=== PATIENT | male | born 1955 | race Caucasian/White ===

== ENCOUNTER 2018-11-17 07:07 | Day surgery (SDC) | payer MEDICAID ==
[~2018-11-17 07:07] MED LIST: Bupivacaine 0.5% 50 ML MDV ONE; Lidocaine 1% with EPINEPHrine 1:100,000 50 ML MDV ONE
[2018-11-17] MEDS ORDERED: Dextrose 5%-Lactated Ringers 1,000 ML IV SCH (08:00)
[2018-11-17] MEDS ORDERED: Propofol 200 MG/20 ML SDV ONE ×2 (08:46→09:48)
[2018-11-17] MEDS ORDERED: fentaNYL 100 MCG/2 ML SDV ONE (08:46)
[2018-11-17] MEDS ORDERED: Midazolam 1 MG/ML 2 ML SDV ONE (08:47)
[2018-11-17] MEDS ORDERED: ceFAZolin 2 GM in Premix Bag 1 BAG IV ONE (09:00)
[2018-11-17] MEDS ORDERED: Sodium Chloride 0.9% 10 ML ONE (10:03)
[2018-11-17] MEDS ORDERED: hydrOXYzine HCl 100 MG/2 ML SDV IM ONE (10:17)
[2018-11-17] MEDS ORDERED: fentaNYL 100 MCG/2 ML SDV IVPUSH ONE ×2 (10:17→10:37)
[2018-11-17] MEDS ORDERED: Acetaminophen/HYDROcodone 325-5 MG Tab PO ONE (11:15)
--- NOTE | 2018-11-20 08:07 | OR ---
DATE OF PROCEDURE: 11/17/2018 PREOPERATIVE DIAGNOSIS: Reducible umbilical hernia. POSTOPERATIVE DIAGNOSIS: Reducible umbilical hernia. PROCEDURE: Repair of reducible umbilical hernia with an 8 cm in diameter Ventralex mesh patch with straps. SURGEON: Nikita Louise MD ANESTHESIA: IV anesthesia with monitored anesthesia care. INDICATION: This 63-year-old white male is here for repair of an umbilical hernia that is reducible. He denies predisposing factors for hernia formation. No signs or symptoms of incarceration or obstruction. I counseled him for repair of this with mesh, including risks and alternatives, and he gave his informed consent to proceed. PROCEDURE IN DETAIL: After adequate IV anesthesia was obtained, the patient's abdomen was prepped and draped in usual sterile fashion. Time-out was held. Lidocaine 1% with epinephrine in a 50:50 mix with 0.5% Marcaine was infiltrated about the umbilicus. An infraumbilical semicircular incision was made. The underlying hernia was dissected free from the overlying skin. Hernia sac was excised and sent to pathology. The hernia defect was large enough to take an 8 cm in diameter piece of mesh. An 8 cm Ventralex mesh patch with straps was obtained. This was placed down underneath the fascia through the defect. The straps were cut to appropriate length. The mesh was pulled up and the straps were attached to the anterior fascia with 2-0 Vicryl suture nicely achieving the repair. A [id number] stitch of 2-0 Vicryl was used to close the fascia over the mesh and this stitch was used to anchor the umbilical skin down to the fascia. All looked well. The incision was irrigated and dried. The skin was closed with a subcuticular stitch of 4-0 Vicryl. Dermabond was applied. The patient tolerated the procedure well and was brought to the recovery room in good condition. Nikita Louise MD /[id number]
== END 2018-11-17 13:00 | disposition home or self-care (01) ==
LOC: JP.SDS 07:07
PROVIDERS: ATTEND Surgery
DX: K42.9 Umbilical hernia without obstruction or gangrene (principal); K21.9 Gastro-esophageal reflux disease without esophagitis; F03.90 Unspecified dementia, unspecified severity, without behavioral disturbance, psychotic disturbance, mood disturbance, and anxiety; Z88.6 Allergy status to analgesic agent
CPT/HCPCS: 49585; A9270; C1781; J0690; J2250; J2704; J3010; J3410; J3490; J7042